=== PATIENT | male | born 1950 | race Caucasian/White ===

== ENCOUNTER → 2020-08-26 | Outpatient (CLI) | payer MEDICARE, OTHER ==
[2020-01-27 01:34] VITALS: BP 141/105
[~2020-08-26] MED LIST: ASPIRIN 81M81 MG/TA2 PO; CIPRO500 M1 PO; COZAAR 50MG50 MG/TAB PO; FISH OIL1 IU PO; GARLIC1 EAC1 PO; GOOD NEIGHBOR100 M2 PO; MULTIVITAMIN1 SGL PO; NORVASC 10MG10 MG PO; POTASSIUM99 M3 PO
== END ==
LOC: RAD 11:04
DX: M17.11 Unilateral primary osteoarthritis, right knee (principal)

== ENCOUNTER → 2020-10-20 | Outpatient (CLI) | payer MEDICARE, OTHER ==
[2020-01-27 01:34] VITALS: BP 141/105
== END ==
LOC: RAD 08:30
PROVIDERS: Urology
DX: N40.1 Benign prostatic hyperplasia with lower urinary tract symptoms (principal); N13.8 Other obstructive and reflux uropathy
CPT/HCPCS: Q9967

== ENCOUNTER → 2021-03-15 | Outpatient (CLI) | payer MEDICARE, OTHER ==
[2020-01-27 01:34] VITALS: BP 141/105
== END ==
LOC: RAD 09:48
PROVIDERS: Urology
DX: N40.0 Benign prostatic hyperplasia without lower urinary tract symptoms (principal); N32.9 Bladder disorder, unspecified; Z90.79 Acquired absence of other genital organ(s)
CPT/HCPCS: Q9967

== ENCOUNTER → 2021-10-04 | Outpatient (CLI) | payer MEDICARE, OTHER ==
[2021-10-04 13:07] LABS: BASO # 0.08 K/mm3 (0.02-0.10); EOS # 0.18 K/mm3 (0.04-0.40); EOS % 2.4 % (0.0-4.0); HEMOGLOBIN 15.2 g/dL (13.5-18.0); LYMPH# 2.23 K/mm3 (1.50-4.00); MEAN CELL VOLUME 88 fl (78-100); MEAN CORPUSCULAR HEMOGLOBIN 30 pg (27-31); MEAN CORPUSCULAR HGB CONC 34 g/dL (33-37); MEAN PLATELET VOLUME 10.9 fl (7.4-10.4); MONO # 0.79 K/mm3 (0.20-0.80); NEU # 4.06 K/mm3 (1.40-6.50); PLATELET COUNT 237 K/mm3 (130-400); RED BLOOD COUNT 5.12 M/mm3 (4.20-5.60); RED CELL DISTRIBUTION WIDTH 12.3 % (11.5-14.5); WHITE BLOOD COUNT 7.4 K/mm3 (4.8-10.8)
[2021-10-04 13:16] LABS: POTASSIUM 3.8 mmol/L (3.5-5.1)
[2021-10-04 13:17] LABS: ALBUMIN 4.3 g/dL (3.4-4.8)
[2021-10-04 13:18] LABS: CALCIUM 9.7 mg/dL (8.3-10.5)
[2021-10-04 13:19] LABS: TOTAL PROTEIN 7.3 g/dL (6.2-8.1)
[2021-10-04 13:21] LABS: TOTAL BILIRUBIN 0.9 mg/dL (0.2-1.2)
== END ==
LOC: LAB 12:54
PROVIDERS: Physician Assistant
DX: Z00.00 Encounter for general adult medical examination without abnormal findings (principal); Z13.220 Encounter for screening for lipoid disorders; I10 Essential (primary) hypertension; R31.0 Gross hematuria

== ENCOUNTER → 2021-11-03 | Day surgery (SDC) | payer MEDICARE, OTHER | END | disposition home or self-care (01) | LOC: MSO 08:09 | DX: Z12.11 Encounter for screening for malignant neoplasm of colon (principal); I10 Essential (primary) hypertension; N40.0 Benign prostatic hyperplasia without lower urinary tract symptoms; Z79.82 Long term (current) use of aspirin; Z79.899 Other long term (current) drug therapy; Z86.73 Personal history of transient ischemic attack (TIA), and cerebral infarction without residual deficits; Z87.891 Personal history of nicotine dependence | CPT/HCPCS: 00812; J2704; J7120 ==

== ENCOUNTER → 2021-11-10 | Outpatient (CLI) | payer MEDICARE, OTHER | LOC: AMSURD 11:31 | DX: I44.60 Unspecified fascicular block (principal) ==

== ENCOUNTER → 2022-05-09 | Outpatient (CLI) | payer MEDICARE, OTHER ==
[2022-05-09 08:28] LABS: POTASSIUM 3.7 mmol/L (3.5-5.1)
[2022-05-09 08:29] LABS: CALCIUM 9.2 mg/dL (8.3-10.5)
[2022-05-09 08:30] LABS: TOTAL PROTEIN 7.3 g/dL (6.2-8.1)
[2022-05-09 08:32] LABS: TOTAL BILIRUBIN 0.8 mg/dL (0.2-1.2)
== END ==
LOC: LAB 08:01
PROVIDERS: Physician Assistant
DX: E78.2 Mixed hyperlipidemia (principal); I10 Essential (primary) hypertension

== ENCOUNTER → 2022-09-01 | Outpatient (CLI) | payer MEDICARE, OTHER ==
[~2022-09-01] MED LIST changes: +ATORVASTATIN CA80 MG PO; +CETIRIZINE HCL10 MG PO; +FINASTERIDE5 M1 PO; +FLUTICASON0.05 MG/Ac NS
== END ==
LOC: RAD 11:58
DX: S27.0XXD Traumatic pneumothorax, subsequent encounter (principal); S22.42XA Multiple fractures of ribs, left side, initial encounter for closed fracture

== ENCOUNTER → 2022-09-26 | Outpatient (CLI) | payer MEDICARE, OTHER ==
[2022-09-26 08:43] LABS: BASO # 0.05 K/mm3 (0.02-0.10); HEMATOCRIT 45.9 % (42.0-52.0); HEMOGLOBIN 15.6 g/dL (13.5-18.0); LYMPH# 3.02 K/mm3 (1.50-4.00); MEAN CELL VOLUME 90 fl (78-100); MEAN CORPUSCULAR HEMOGLOBIN 31 pg (27-31); MEAN CORPUSCULAR HGB CONC 34 g/dL (33-37); MONO # 0.75 K/mm3 (0.20-0.80); NEU # 5.68 K/mm3 (1.40-6.50); PLATELET COUNT 241 K/mm3 (130-400); RED BLOOD COUNT 5.12 M/mm3 (4.20-5.60); RED CELL DISTRIBUTION WIDTH 12.6 % (11.5-14.5)
[2022-09-26 08:47] LABS: ALBUMIN 4.2 g/dL (3.4-4.8); POTASSIUM 3.5 mmol/L (3.5-5.1)
[2022-09-26 08:48] LABS: CALCIUM 9.4 mg/dL (8.3-10.5)
[2022-09-26 08:49] LABS: TOTAL PROTEIN 7.5 g/dL (6.2-8.1)
[2022-09-26 08:51] LABS: TOTAL BILIRUBIN 0.6 mg/dL (0.2-1.2)
[2022-09-26 08:56] LABS: MAGNESIUM 1.88 mg/dL (1.60-2.60)
== END ==
LOC: LAB 08:18
PROVIDERS: Physician Assistant
DX: Z00.00 Encounter for general adult medical examination without abnormal findings (principal); Z12.5 Encounter for screening for malignant neoplasm of prostate; Z13.29 Encounter for screening for other suspected endocrine disorder; I10 Essential (primary) hypertension; E78.2 Mixed hyperlipidemia; I45.0 Right fascicular block; J30.2 Other seasonal allergic rhinitis; K90.9 Intestinal malabsorption, unspecified

== ENCOUNTER → 2023-07-26 | Outpatient (CLI) | payer MEDICARE, OTHER | LOC: RAD 11:34 | DX: M19.011 Primary osteoarthritis, right shoulder (principal) ==

== ENCOUNTER 2023-08-29 15:17 | Outpatient (RCR) | payer MEDICARE, OTHER | END 2023-09-20 | disposition home or self-care (01) | LOC: PT | DX: M25.511 Pain in right shoulder (principal) ==

== ENCOUNTER 2023-09-21 08:00 | Outpatient (RCR) | payer MEDICARE, OTHER | END 2023-10-21 | disposition home or self-care (01) | LOC: PT | DX: M75.101 Unspecified rotator cuff tear or rupture of right shoulder, not specified as traumatic (principal) ==

== ENCOUNTER → 2023-10-19 | Outpatient (CLI) | payer MEDICARE | LOC: LAB 15:14 | DX: R31.0 Gross hematuria (principal) ==

== ENCOUNTER → 2024-02-16 | Outpatient (CLI) | payer MEDICARE | LOC: LAB 09:22 | DX: R31.0 Gross hematuria (principal) ==

== ENCOUNTER → 2024-07-21 | Outpatient (CLI) | payer MEDICARE ==
[2024-07-21 11:40] LABS: URINE WBC 0 /hpf (0-3)
[2024-07-21 11:55] LABS: BASO # 0.02 K/mm3 (0.02-0.10); EOS # 0.13 K/mm3 (0.04-0.40); EOS % 1.9 % (0.0-4.0); HEMATOCRIT 43.5 % (42.0-52.0); HEMOGLOBIN 14.9 g/dL (13.5-18.0); LYMPH# 2.27 K/mm3 (1.50-4.00); MEAN CELL VOLUME 90 fl (78-100); MEAN CORPUSCULAR HEMOGLOBIN 31 pg (27-31); MEAN CORPUSCULAR HGB CONC 34 g/dL (33-37); MEAN PLATELET VOLUME 11.3 fl (7.4-10.4); MONO # 0.58 K/mm3 (0.20-0.80); NEU # 3.74 K/mm3 (1.40-6.50); PLATELET COUNT 210 K/mm3 (130-400); RED BLOOD COUNT 4.86 M/mm3 (4.20-5.60); RED CELL DISTRIBUTION WIDTH 12.8 % (11.5-14.5); WHITE BLOOD COUNT 6.8 K/mm3 (4.8-10.8)
[2024-07-21 12:03] LABS: ALBUMIN 4.4 g/dL (3.4-4.8)
[2024-07-21 12:05] LABS: CALCIUM 9.8 mg/dL (8.3-10.5)
[2024-07-21 12:06] LABS: TOTAL PROTEIN 7.2 g/dL (6.2-8.1)
[2024-07-21 12:08] LABS: TOTAL BILIRUBIN 0.8 mg/dL (0.2-1.2)
[2024-07-21 12:10] LABS: PARTIAL THROMBOPLASTIN TIME 23.6 SECONDS (21.0-32.0); PROTHROMBIN TIME 10.6 SECONDS (9.0-12.0)
[2024-07-21 12:33] LABS: URINE APPEARANCE CLEAR (CLEAR); URINE BILIRUBIN NEGATIVE (NEGATIVE); URINE BLOOD NEGATIVE (NEGATIVE); URINE COLOR YELLOW (YELLOW); URINE GLUCOSE NEGATIVE (NEGATIVE); URINE KETONE NEGATIVE (NEGATIVE); URINE LEUKOCYTE ESTERASE NEGATIVE (NEGATIVE); URINE NITRATE NEGATIVE (NEGATIVE); URINE PROTEIN(semi-quant) NEGATIVE (NEGATIVE)
== END ==
LOC: AMSURD 10:57 → RAD 10:57
PROVIDERS: Physician Assistant
DX: Z01.811 Encounter for preprocedural respiratory examination (principal); Z01.810 Encounter for preprocedural cardiovascular examination; R00.1 Bradycardia, unspecified; I45.10 Unspecified right bundle-branch block; R53.83 Other fatigue

== ENCOUNTER → 2024-08-21 | Outpatient (RCR) | payer MEDICARE | END | disposition home or self-care (01) | LOC: PT | DX: M17.11 Unilateral primary osteoarthritis, right knee (principal); Z96.651 Presence of right artificial knee joint ==